=== PATIENT | female | born 1980 | race African-American/Black ===

== ENCOUNTER 2017-01-20 20:57 | Emergency (ER) | payer OTHER ==
[~2017-01-20] VITALS: Ht 157.5 cm; Wt 78.9 kg
[~2017-01-20 20:57] MED LIST: CETI-17 PO; DULO20CA PO; FLUT9.9S NS; GABA-586 PO; HYDR-2758 PO; IBUP-1060 PO; IRON18TA PO; MULT-18 PO; OMEP20CA9 PO; PROAIR HFA8.5 GM INH; flexeril
[2017-01-20 21:07] VITALS: BP 119/75
[2017-01-20 21:21] LABS: BILIRUBIN,URINE NEGATIVE (NEG); GLUCOSE,URINE NEGATIVE (NEG); NITRITE,URINE NEGATIVE (NEG); PROTEIN,URINE NEGATIVE (NEG-TRACE); UROBILINOGEN,URINE 0.2 mg/dL (0.2 mg/dL)
[2017-01-20 21:39] LABS: BACTERIA,URINE 0 /HPF (0-FEW); RBC,URINE OCC /HPF (0-2); SQUAMOUS EPITHELIAL CELL,UR MOD /LPF; WBC,URINE 0 /HPF (0-4)
[2017-01-20] MEDS ORDERED: PSEUDOEPHEDRINE 30 MG TABLET. PO PRN (21:45)
--- NOTE | 2017-01-20 21:47 | PHYS DOC ---
Past Medical History Past Medical History: Anemia, Arthritis, Bronchitis, GERD, Sciatica, Other Additional Past Medical Histor: ulcers; ovarian cysts; season allergies Past Surgical History: Appendectomy, Hysterectomy, Oophorectomy, Tonsillectomy , Tubal ligation Additional Past Surgical Histo: laparascopic abdominal surgeries, nose Alcohol Use: Occasionally Drug Use: Marijuana Adult General Chief Complaint Chief Complaint: URINARY RETENTION HPI HPI Patient is a 37 year old female presents to emergency department stating that she has having left frontal sinus pain and discomfort as well as left maxillary. Patient states that she's had some nasal congestion and coughing up green to yellow sputum. She states that her chest discomfort this occurring mainly when she is coughing. Patient is also stating that she's having urinary frequency and dysuria with urination. Patient states she's been having some white vaginal discharge. She states that she has not concern for sexual transmitted infection she is concerned however for bacterial vaginosis. Patient states that she has taken hydrocodone for her headache with no relief. Patient has not taken anything since this morning. Patient states that she's been having some lightheadedness and dizziness as well. Patient states that she thinks she has blacked out that she is unsure. Review of Systems Review of Systems Constitutional: Denies fever or chills [] Eyes: Denies change in visual acuity, redness, or eye pain [] HENT: Denies nasal congestion or sore throat [] Respiratory: Denies cough or shortness of breath [] Cardiovascular: No additional information not addressed in HPI [] GI: Denies abdominal pain, nausea, vomiting, bloody stools or diarrhea [] : Dysuria and vaginal discharge Musculoskeletal: Denies back pain or joint pain [] Integument: Denies rash or skin lesions [] Neurologic: headache, focal weakness or sensory changes [] Endocrine: Denies polyuria or polydipsia [] Current Medications Current Medications Current Medications Medications (Trade) Dose Ordered Sig/Mac Start Time Stop Time Status Last Admin Dose Admin Ibuprofen (Motrin) 800 mg 1X ONCE 01/20/17 22:00 01/20/17 22:01 DC 01/20/17 22:04 800 MG Pseudoephedrine HCl (Sudafed) 30 mg PRN Q6HRS PRN 01/20/17 21:45 01/20/17 22:04 30 MG Allergies Allergies Allergies Coded Allergies Type Severity Reaction Last Updated Verified azithromycin Allergy Intermediate hives 05/23/14 Yes Physical Exam Physical Exam Constitutional: Well developed, well nourished, no acute distress, non-toxic appearance. [] HENT: Normocephalic, atraumatic, bilateral external ears normal, oropharynx moist, no oral exudates, nose normal. Bilateral tympanic membranes appear to be normal. Patient with tenderness noted over the left frontal and maxillary sinus area. Eyes: PERRLA, EOMI, conjunctiva normal, no discharge. [] Neck: Normal range of motion, no tenderness, supple, no stridor. [] Cardiovascular:Heart rate regular rhythm, no murmur [] Lungs & Thorax: Bilateral breath sounds clear to auscultation [] Skin: Warm, dry, no erythema, no rash. [] Back: No tenderness, no CVA tenderness. [] Extremities: No tenderness, no cyanosis, no clubbing, ROM intact, no edema. [] Neurologic: Alert and oriented X 3, normal motor function, normal sensory function, no focal deficits noted. [] Psychologic: Affect normal, judgement normal, mood normal. [] Vaginal exam: completed with SHAWANDA Wheeler at bedside. Speculum exam with thick white discharge noted. Manual exam with CMT and left adnexal tenderness noted, no right adnexal tenderness noted. Current Patient Data Vital Signs Vital Signs Date Time Temp Pulse Resp B/P (MAP) Pulse Ox O2 Delivery O2 Flow Rate FiO2 01/20/17 21:07 98.0 90 16 100 Room Air 98.0 Lab Values Laboratory Tests Test 01/20/17 20:59 Urine Collection Type Unknown Urine Color Yellow Urine Clarity Clear Urine pH 7.0 Urine Specific [place] <=1.005 Urine Protein Negative mg/dL (NEG-TRACE) Urine Glucose (UA) Negative mg/dL (NEG) Urine Ketones (Stick) Negative mg/dL (NEG) Urine Blood Negative (NEG) Urine Nitrite Negative (NEG) Urine Bilirubin Negative (NEG) Urine Urobilinogen Dipstick 0.2 mg/dL (0.2 mg/dL) Urine Leukocyte Esterase Negative (NEG) Urine RBC Occ /HPF (0-2) Urine WBC 0 /HPF (0-4) Urine Squamous Epithelial Cells Mod /LPF Urine Bacteria 0 /HPF (0-FEW) Urine Mucus Slight /LPF Microbiology 01/20/17 Wet Prep - Final, Complete EKG EKG [] Radiology/Procedures Radiology/Procedures [] Course & Med Decision Making Course & Med Decision Making Pertinent Labs and Imaging studies reviewed. (See chart for details) Patient was provided with Sudafed and ibuprofen here in the emergency department. Patient denies possibility of sexual transmitted infections. Patient will be provided with Flagyl for bacterial vaginosis. Patient will be provided with Levaquin for sinusitis infection as well as covering for UTI. Patient will be discharged home with recommendations to drink plenty of fluids. Recommended Sudafed and ibuprofen for pain and discomfort. Also recommended Mucinex DM [id number]. Patient will be discharged home in stable condition signs and symptoms to return back to emergency department as been provided. All questions and concerns been answered at patient's bedside. Patient was recommended to follow-up the primary care physician next 5-7 days. Patient agrees with discharge instructions treatment regimens and follow-up recommendations. [] Dragon Disclaimer Dragon Disclaimer This electronic medical record was generated, in whole or in part, using a voice recognition dictation system. Departure Departure Impression: Primary Impression: Dysuria Additional Impressions: Bacterial vaginosis Sinusitis Disposition: HOME, SELF-CARE Condition: STABLE Referrals: DOMINGO GROVE MD (PCP) Patient Instructions: Bacterial Vaginosis, [id number], Dysuria-Brief, Sinusitis, [id number] Additional Instructions: Activity as tolerated. Medications as prescribed. Tylenol or ibuprofen for fever chills generalized body aches and discomfort. Sudafed and Mucinex DM instructed by sheet metal smith [id number]. Drink plenty of fluids. Follow-up primary care physician next 7-10 days. Return back to emergency prior signs symptoms of become worse. Scripts Metronidazole (FLAGYL) 500 Mg Tablet 1 TAB PO BID, #14 TAB Prov: JAVI VIZCAINO PROPERTY CONSULTANT 01/20/17 Levofloxacin (LEVAQUIN) 750 Mg Tablet 1 TAB PO DAILY, #5 TAB Prov: JAVI VIZCAINO APRN 01/20/17 Problem Qualifiers Additional Impressions: Sinusitis Sinusitis location: unspecified location Chronicity: unspecified Qualified Codes: J32.9 - Chronic sinusitis, unspecified JAVI VIZCAINO PROPERTY CONSULTANT Jan 20, 2017 21:47
[2017-01-20] MEDS ORDERED: IBUPROFEN 800 MG TABLET. PO ONE (22:00)
[2017-01-20] MEDS ORDERED: LEVO750T31 PO (22:18)
[2017-01-20] MEDS ORDERED: METR500T PO (22:18)
== END 2017-01-20 22:34 | disposition home or self-care (01) ==
LOC: ER 20:57
DX: N76.0 Acute vaginitis (principal); J32.0 Chronic maxillary sinusitis; J32.1 Chronic frontal sinusitis; M19.90 Unspecified osteoarthritis, unspecified site; K21.9 Gastro-esophageal reflux disease without esophagitis; Z90.49 Acquired absence of other specified parts of digestive tract; Z90.710 Acquired absence of both cervix and uterus; Z98.51 Tubal ligation status; Z90.721 Acquired absence of ovaries, unilateral; Z88.1 Allergy status to other antibiotic agents
CPT/HCPCS: 81001; 87491; 87591; 99284; Q0111

== ENCOUNTER 2017-01-26 17:54 | Emergency (ER) | payer OTHER ==
[~2017-01-26] VITALS: Ht 157.5 cm; Wt 78.9 kg
[~2017-01-26 17:54] MED LIST changes: +LEVO750T31 PO; +METR500T PO
[2017-01-26 18:00] VITALS: BP 108/77
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
[2017-01-26] MEDS ORDERED: traMADol 50 MG TABLET PO ONE (18:30)
[2017-01-26] MEDS ORDERED: TRAM50TA PO (18:45)
--- NOTE | 2017-01-27 08:40 | RAD ---
Right shoulder, 3 views, 01/26/2017: History: Injury, pain No fracture or dislocation is identified. The periarticular soft tissues are unremarkable. IMPRESSION: No acute right shoulder abnormality is detected.
== END 2017-01-26 18:55 | disposition home or self-care (01) ==
LOC: ER 17:54
DX: S49.91XA Unspecified injury of right shoulder and upper arm, initial encounter (principal); K21.9 Gastro-esophageal reflux disease without esophagitis; M19.90 Unspecified osteoarthritis, unspecified site; Z88.1 Allergy status to other antibiotic agents; X58.XXXA Exposure to other specified factors, initial encounter; Y93.89 Activity, other specified; Y92.89 Other specified places as the place of occurrence of the external cause; Y99.8 Other external cause status
CPT/HCPCS: 73030; 81025; 99284

== ENCOUNTER 2017-03-02 22:02 | Emergency (ER) | payer OTHER ==
[~2017-03-02] VITALS: Ht 162.6 cm; Wt 73.5 kg
[~2017-03-02 22:02] MED LIST changes: +TRAM50TA PO
[2017-03-02 22:10] VITALS: BP 127/81
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
[2017-03-02] MEDS ORDERED: TRAM50TA PO (22:59)
== END 2017-03-02 22:59 | disposition home or self-care (01) ==
LOC: ER 22:02
DX: S02.2XXA Fracture of nasal bones, initial encounter for closed fracture (principal); M54.2 Cervicalgia; M19.90 Unspecified osteoarthritis, unspecified site; K21.9 Gastro-esophageal reflux disease without esophagitis; F12.10 Cannabis abuse, uncomplicated; Z90.710 Acquired absence of both cervix and uterus; Z90.49 Acquired absence of other specified parts of digestive tract; Z88.1 Allergy status to other antibiotic agents; Y04.0XXA Assault by unarmed brawl or fight, initial encounter; Y93.89 Activity, other specified; Y92.89 Other specified places as the place of occurrence of the external cause; Y99.8 Other external cause status
CPT/HCPCS: 70450; 70486; 72125; 99284-25

== ENCOUNTER 2017-03-26 16:22 | Emergency (ER) | payer OTHER ==
[~2017-03-26] VITALS: Ht 162.6 cm; Wt 73.5 kg
[2017-03-26 17:05] VITALS: BP 124/70
[2017-03-26 18:54] LABS: BILIRUBIN,URINE SMALL (NEG); GLUCOSE,URINE NEGATIVE (NEG); NITRITE,URINE NEGATIVE (NEG); PROTEIN,URINE NEGATIVE (NEG-TRACE)
[2017-03-26 18:55] LABS: BACTERIA,URINE 0 /HPF (0-FEW); RBC,URINE 0 /HPF (0-2); SQUAMOUS EPITHELIAL CELL,UR MOD /LPF; WBC,URINE 0 /HPF (0-4)
[2017-03-26] MEDS ORDERED: DOXY100C2 PO (19:13)
[2017-03-26] MEDS ORDERED: SULF1TAB24 PO (19:13)
--- NOTE | 2017-03-26 19:13 | PHYS DOC ---
Past Medical History Past Medical History: Anemia, Arthritis, Bronchitis, GERD, Sciatica, Other Additional Past Medical Histor: ulcers; ovarian cysts; season allergies Past Surgical History: Appendectomy, Hysterectomy, Oophorectomy, Tonsillectomy , Tubal ligation Additional Past Surgical Histo: laparascopic abdominal surgeries, nose Alcohol Use: Occasionally Drug Use: None Adult General Chief Complaint Chief Complaint: COUGH HPI HPI Patient is a 37 year old female presents to the emergency department stating that she's been having a cough and congestion for the last few days. She states that she has increased discomfort in her chest which she takes a deep breath. Denies any fever, chills or any nausea vomiting. Patient then states that she wants to be checked for STDs as her has been unfaithful. Review of Systems Review of Systems Constitutional: Denies fever or chills [] Eyes: Denies change in visual acuity, redness, or eye pain [] HENT: Denies nasal congestion or sore throat [] Respiratory: Cough and congestion with increased chest discomfort with deep breathing. Denies any shortness of air Cardiovascular: No additional information not addressed in HPI [] GI: Denies abdominal pain, nausea, vomiting, bloody stools or diarrhea [] : Denies dysuria or hematuria [] Musculoskeletal: Denies back pain or joint pain [] Integument: Denies rash or skin lesions [] Neurologic: Denies headache, focal weakness or sensory changes [] Endocrine: Denies polyuria or polydipsia [] All other systems were reviewed and found to be within normal limits, except as documented in this note. Allergies Allergies Allergies Coded Allergies Type Severity Reaction Last Updated Verified azithromycin Allergy Intermediate hives 05/23/14 Yes Physical Exam Physical Exam Constitutional: Well developed, well nourished, no acute distress, non-toxic appearance. [] HENT: Normocephalic, atraumatic, bilateral external ears normal, oropharynx moist, no oral exudates, nose normal. Bilateral tympanic membranes normal. Throat with postnasal drip. No erythematous noted no exudate. Eyes: PERRLA, EOMI, conjunctiva normal, no discharge. [] Neck: Normal range of motion, no tenderness, supple, no stridor. [] Cardiovascular:Heart rate regular rhythm, no murmur [] Lungs & Thorax: Bilateral breath sounds clear to auscultation [] Abdomen: Bowel sounds normal, soft, no tenderness, no masses, no pulsatile masses. [] Skin: Warm, dry, no erythema, no rash. [] Extremities: No tenderness, no cyanosis, no clubbing, ROM intact, no edema. [] Neurologic: Alert and oriented X 3, normal motor function, normal sensory function, no focal deficits noted. [] Psychologic: Affect normal, judgement normal, mood normal. [] Vaginal exam completed with RN at bedside. Cultures were obtained. Patient with left adnexal tenderness noted. Current Patient Data Vital Signs Vital Signs Date Time Temp Pulse Resp B/P (MAP) Pulse Ox O2 Delivery O2 Flow Rate FiO2 03/26/17 17:05 98.1 88 18 96 Room Air 98.1 Lab Values Laboratory Tests Test 03/26/17 18:10 Urine Collection Type Unknown Urine Color Anastasiya Urine Clarity Clear Urine pH 6.0 Urine Specific [place] >=1.030 Urine Protein Negative mg/dL (NEG-TRACE) Urine Glucose (UA) Negative mg/dL (NEG) Urine Ketones (Stick) Trace mg/dL (NEG) Urine Blood Negative (NEG) Urine Nitrite Negative (NEG) Urine Bilirubin Small (NEG) Urine Urobilinogen Dipstick 1.0 mg/dL (0.2 mg/dL) Urine Leukocyte Esterase Negative (NEG) Urine RBC 0 /HPF (0-2) Urine WBC 0 /HPF (0-4) Urine Squamous Epithelial Cells Mod /LPF Urine Bacteria 0 /HPF (0-FEW) Urine Mucus Marked /LPF Microbiology 03/26/17 Wet Prep - Final, Complete EKG EKG [] Radiology/Procedures Radiology/Procedures [] Course & Med Decision Making Course & Med Decision Making Pertinent Labs and Imaging studies reviewed. (See chart for details) After moving patient to an exam room were vaginal exam could be completed patient states that she's been having dysuria. Patient's urine was obtained and sent. Patient's urine was positive for urinary tract infection. Wet prep was positive for Trichomonas, bacterial vaginosis. Patient will be placed on doxycycline as she is allergic to Zithromax. She was provided with Rocephin injection and Flagyl here in the emergency department. She'll be placed on Bactrim DS one tablet twice a day for the next 3 days. Patient was encouraged to drink plenty of fluids such as water and cranberry juice. Avoid rages cocktail, carbonate beverages, citrus fruits, alcohol as these are considered irritants to the bladder. Patient was also instructed to avoid sexual intercourse for the next 2 weeks. She was instructed she will be notified if her STDs are positive within the next 2-3 days. Patient agrees with discharge instructions treatment regimens and follow-up recommendations. Signs and symptoms return back to emergency department has been provided. [] Dragon Disclaimer Dragon Disclaimer This electronic medical record was generated, in whole or in part, using a voice recognition dictation system. Departure Departure Impression: Primary Impression: Bacterial vaginosis Additional Impressions: UTI (urinary tract infection) Trichomonas infection Upper respiratory infection Disposition: HOME, SELF-CARE Condition: STABLE Referrals: DOMINGO GROVE MD (PCP) Patient Instructions: Bacterial Vaginosis, Suoy-ox-Csse, Trichomoniasis-Brief, Upper Respiratory Infection, Adult, [id number], Urinary Tract Infection, Easy- to-Read Additional Instructions: Activity as tolerated. Medications as prescribed. Avoid sexual intercourse for the next 2 weeks. You will be notified in 2-3 days if your STDs are positive. Drink plenty of fluids such as water and cranberry juice. Avoid cranberry juice cocktail, carbonate beverages, citrus fruits, and alcohol as his are considered irritants to the bladder. Follow-up with primary care physician the next 7-10 days. Return back to the emergency department for signs and symptoms of become worse Scripts Sulfamethoxazole/Trimethoprim (BACTRIM DS TABLET) 1 Each Tablet 1 TAB PO BID, #6 TAB Prov: JAVI VIZCAINO APRN 03/26/17 Doxycycline Hyclate (DOXYCYCLINE HYCLATE) 100 Mg Capsule 1 CAP PO BID, #28 CAP Prov: JAVI VIZCAINO APRN 03/26/17 Problem Qualifiers Additional Impressions: UTI (urinary tract infection) Urinary tract infection type: site unspecified Hematuria presence: without hematuria Qualified Codes: N39.0 - Urinary tract infection, site not specified JAVI VIZCAINO APRN Mar 26, 2017 19:13
[2017-03-26] MEDS ORDERED: cefTRIAXone IM 250 MG VIAL IM ONE (19:15)
[2017-03-26] MEDS ORDERED: metroNIDAZOLE 500 MG TABLET PO ONE (19:15)
[2017-03-26] MEDS ORDERED: LIDOCAINE 1% PF 2 ML VIAL. ONE (19:16)
[2017-03-26] MEDS ORDERED: LIDOCAINE 1% PF 2 ML VIAL. INJ ONE (19:30)
[2017-03-26] MEDS ORDERED: FLUC150T PO (19:32)
--- NOTE | 2017-04-01 09:55 | VNOTE ---
CALL BACK NOTE CALL BACK Microbiology 03/26/17 Wet Prep - Final, Complete Patient notified of vaginal culture results from March 26 visit. Positive for chlamydia. She was discharged on doxycycline at that time. Patient does report she filled the prescription is taking as directed. No other treatment indicated at this time. TIANNA GOLDSTEIN APRN Apr 01, 2017 09:55
== END 2017-03-26 19:27 | disposition home or self-care (01) ==
LOC: ER 16:22
DX: N76.0 Acute vaginitis (principal); B96.89 Other specified bacterial agents as the cause of diseases classified elsewhere; N39.0 Urinary tract infection, site not specified; A59.01 Trichomonal vulvovaginitis; J06.9 Acute upper respiratory infection, unspecified; M19.90 Unspecified osteoarthritis, unspecified site; K21.9 Gastro-esophageal reflux disease without esophagitis; Z90.49 Acquired absence of other specified parts of digestive tract; Z88.1 Allergy status to other antibiotic agents; Z90.710 Acquired absence of both cervix and uterus; Z90.721 Acquired absence of ovaries, unilateral; Z98.51 Tubal ligation status
CPT/HCPCS: 81001; 87491; 87591; 96372; 99284; J0696; Q0111

== ENCOUNTER 2017-06-08 06:10 | Emergency (ER) | payer OTHER ==
[2017-06-08] MEDS: ONDANSETRON ODT 4 MG TAB.RAPDIS. PO (07:31)
[2017-06-08] MEDS: KETOROLAC 60 MG/2 ML INJ. IM (07:32)
[2017-06-08] MEDS: ACETAMINOPHEN 500 MG TABLET PO (07:32)
[2017-06-08 23:10] LABS: HIV ANTIBODY Non Reactive (Non Reactive)
== END 2017-06-08 07:55 | disposition home or self-care (01) ==
LOC: ER 06:10
DX: S39.012A Strain of muscle, fascia and tendon of lower back, initial encounter (principal); S29.012A Strain of muscle and tendon of back wall of thorax, initial encounter; S16.1XXA Strain of muscle, fascia and tendon at neck level, initial encounter; G44.209 Tension-type headache, unspecified, not intractable; F17.210 Nicotine dependence, cigarettes, uncomplicated; Z90.710 Acquired absence of both cervix and uterus; Z90.49 Acquired absence of other specified parts of digestive tract; Z98.51 Tubal ligation status; Z88.1 Allergy status to other antibiotic agents; Z91.018 Allergy to other foods; V43.52XA Car driver injured in collision with other type car in traffic accident, initial encounter; Y93.89 Activity, other specified; Y99.8 Other external cause status; Y92.488 Other paved roadways as the place of occurrence of the external cause
CPT/HCPCS: 36415; 86703; 96372; 99283-25; J1885; Q0162

== ENCOUNTER 2017-06-23 06:36 | Emergency (ER) | payer OTHER ==
[2017-06-23] MEDS: IBUPROFEN 600 MG TABLET. PO (08:05)
== END 2017-06-23 08:31 | disposition home or self-care (01) ==
LOC: ER 06:36
DX: M54.9 Dorsalgia, unspecified (principal); R51 Headache; Z90.49 Acquired absence of other specified parts of digestive tract; Z90.710 Acquired absence of both cervix and uterus; Z88.1 Allergy status to other antibiotic agents; Z91.018 Allergy to other foods; Z98.51 Tubal ligation status; V43.52XA Car driver injured in collision with other type car in traffic accident, initial encounter; Y93.I9 Activity, other involving external motion; Y92.410 Unspecified street and highway as the place of occurrence of the external cause; Y99.8 Other external cause status
CPT/HCPCS: 72040; 72072; 72100; 99284

== ENCOUNTER 2017-10-23 13:38 | Emergency (ER) | payer OTHER ==
[2017-10-23 14:48] LABS: BILIRUBIN,URINE NEGATIVE (NEG); CLARITY,URINE CLEAR; COLOR,URINE YELLOW; GLUCOSE,URINE NEGATIVE (NEG); NITRITE,URINE NEGATIVE (NEG); PROTEIN,URINE NEGATIVE (NEG-TRACE)
[2017-10-23 14:56] LABS: BACTERIA,URINE MANY /HPF (0-FEW); SQUAMOUS EPITHELIAL CELL,UR MOD /LPF
[2017-10-23 15:00] LABS: NEG OBC UR NEG; POS OBC UR POS; U PREG PATIENT NEGATIVE (NEG)
[2017-10-23] MEDS: cefTRIAXone IM 250 MG VIAL IM (16:30)
[2017-10-25 15:29] LABS: CHLAMYDIA PROBE Negative (Negative); GC PROBE Negative (Negative)
== END 2017-10-23 16:39 | disposition home or self-care (01) ==
LOC: ER 16:39
DX: N39.0 Urinary tract infection, site not specified (principal); N76.0 Acute vaginitis; B96.89 Other specified bacterial agents as the cause of diseases classified elsewhere; Z20.2 Contact with and (suspected) exposure to infections with a predominantly sexual mode of transmission; Z90.49 Acquired absence of other specified parts of digestive tract; Z90.710 Acquired absence of both cervix and uterus; Z98.51 Tubal ligation status; Z88.1 Allergy status to other antibiotic agents; Z91.018 Allergy to other foods
CPT/HCPCS: 76856; 81001; 81025; 87086; 87491; 87591; 96372; 99285; J0696; Q0111

== ENCOUNTER 2017-10-26 08:12 | Emergency (ER) | payer OTHER ==
[2017-10-26 08:36] LABS: BILIRUBIN,URINE NEGATIVE (NEG); CLARITY,URINE CLEAR; COLOR,URINE YELLOW; GLUCOSE,URINE NEGATIVE (NEG); NITRITE,URINE NEGATIVE (NEG); PH,URINE 6.5; PROTEIN,URINE NEGATIVE (NEG-TRACE)
[2017-10-26 08:44] LABS: BACTERIA,URINE FEW /HPF (0-FEW); RBC,URINE OCC /HPF (0-2); SQUAMOUS EPITHELIAL CELL,UR MANY /LPF
[2017-10-26 08:46] LABS: ADD MAN DIFF? NO
[2017-10-26] MEDS: IV NORMAL SALINE 1000ML BAG 1,000 ML IV (08:46)
[2017-10-26] MEDS: PANTOPRAZOLE IV PUSH 40 MG VIAL. IVP (08:46)
[2017-10-26] MEDS: ONDANSETRON PF 4 MG/2 ML VIAL. IV (08:46)
[2017-10-26 08:56] LABS: BASO # 0.1 x10^3/uL (0.0-0.2); BASO % 2 % (0-3); EOS # 0.1 x10^3/uL (0.0-0.7); EOS % 1 % (0-3); HEMATOCRIT 35.6 % (36.0-47.0); HEMOGLOBIN 12.3 g/dL (12.0-15.5); LYMPH # 2.6 x10^3/uL (1.0-4.8); LYMPH % 49 % (24-48); MEAN CORPUSCULAR HEMOGLOBIN 32 pg (25-35); MEAN CORPUSCULAR HGB CONC 35 g/dL (31-37); MEAN CORPUSCULAR VOLUME 92 fL (79-100); MONO # 0.5 x10^3/uL (0.0-1.1); MONO % 9 % (0-9); NEUT # 2.1 x10^3uL (1.8-7.7); NEUT % 40 % (31-73); PLATELET COUNT 283 x10^3/uL (140-400); RED BLOOD COUNT 3.86 x10^6/uL (3.50-5.40); RED CELL DISTRIBUTION WIDTH 12.9 % (11.5-14.5); WHITE BLOOD COUNT 5.3 x10^3/uL (4.0-11.0)
[2017-10-26 08:59] LABS: ANION GAP 8 (6-14); BLOOD UREA NITROGEN 9 mg/dL (7-20); BUN/CREATININE RATIO 9 (6-20); CALCIUM 8.9 mg/dL (8.5-10.1); CARBON DIOXIDE 26 mmol/L (21-32); CHLORIDE 105 mmol/L (98-107); GFR 75.5; GLUCOSE 90 mg/dL (70-99); POTASSIUM 3.8 mmol/L (3.5-5.1); SODIUM 139 mmol/L (136-145)
[2017-10-26 09:01] LABS: ETHANOL < 10 mg/dL (0-10)
[2017-10-26 09:04] LABS: ALBUMIN 3.6 g/dL (3.4-5.0); ALBUMIN/GLOBULIN RATIO 0.9 (1.0-1.7); ALK PHOS 64 U/L (46-116); ALT (SGPT) 19 U/L (14-59); AST (SGOT) 13 U/L (15-37); LIPASE 194 U/L (73-393); TOTAL BILIRUBIN 0.8 mg/dL (0.2-1.0); TOTAL PROTEIN 7.4 g/dL (6.4-8.2)
[2017-10-26 10:35] LABS: AMPHETAMINE/METHAMPHETAMINE NEG (NEG); BARBITURATES NEG (NEG); BENZODIAZEPINES NEG (NEG); CANNABINOIDS POS (NEG); COCAINE NEG (NEG); ETHANOL, URINE NEG (NEG); METHADONE NEG (NEG); OPIATES NEG (NEG); PHENCYCLIDINE NEG (NEG)
== END 2017-10-26 11:04 | disposition home or self-care (01) ==
LOC: ER 08:12
DX: N39.0 Urinary tract infection, site not specified (principal); Z90.710 Acquired absence of both cervix and uterus; Z90.49 Acquired absence of other specified parts of digestive tract; Z98.51 Tubal ligation status; Z88.1 Allergy status to other antibiotic agents; Z91.018 Allergy to other foods
CPT/HCPCS: 36415; 76705; 80053; 80307; 81001; 83690; 85025; 87086; 96361; 96374; 96375; 99285-25; C9113; G0480; J2405; J7030

== ENCOUNTER 2018-01-04 14:39 | Emergency (ER) | payer OTHER ==
[~2018-01-04] VITALS: Ht 157.5 cm; Wt 65.3 kg
[~2018-01-04 14:39] MED LIST changes: +ACET325T9 PO; +DIAZ5TAB PO; +DOXY100C14 PO; +DOXY100C2 PO; +FLUC150T PO; +NAPR-683 PO; +ONDA4TAB10 PO; +ONDA4TAB10 SL; +PROM12.56 PO; +SULF1TAB24 PO
[2018-01-04] MEDS ORDERED: IV NORMAL SALINE 1000ML BAG 1,000 ML IV ONE (16:00)
[2018-01-04] MEDS ORDERED: DEXAMETHASONE SOD PHOS 20 MG/5 ML VIAL. IV ONE (16:00)
[2018-01-04] MEDS ORDERED: KETOROLAC 15 MG/ML VIAL. IV ONE (16:00)
[2018-01-04] MEDS ORDERED: diphenhydrAMINE 50 MG/ML VIAL IVP ONE (16:00)
[2018-01-04] MEDS ORDERED: METOCLOPRAMIDE HCL 10 MG/2 ML VIAL. IV ONE (16:00)
[2018-01-04 16:30] VITALS: BP 106/59
[2018-01-04] MEDS ORDERED: ONDA4TAB10 PO (16:56)
[2018-01-04] MEDS ORDERED: BUTA1TAB23 PO (16:56)
--- NOTE | 2018-01-04 16:56 | PHYS DOC ---
Past Medical History Past Medical History: Bronchitis, Ovarian Cyst Additional Past Medical Histor: ulcers; ovarian cysts; season allergies Past Surgical History: Appendectomy, Hysterectomy, Tonsillectomy, Tubal ligation Additional Past Surgical Histo: laparascopic abdominal surgeries, nose Alcohol Use: Occasionally Drug Use: Marijuana Adult General Chief Complaint Chief Complaint: HEADACHE HPI HPI Patient is a 38 year old [f__sex] who presents with [] Review of Systems Review of Systems Constitutional: Denies fever or chills [] Eyes: Denies change in visual acuity, redness, or eye pain [] HENT: Denies nasal congestion or sore throat [] Respiratory: Denies cough or shortness of breath [] Cardiovascular: No additional information not addressed in HPI [] GI: Denies abdominal pain, nausea, vomiting, bloody stools or diarrhea [] : Denies dysuria or hematuria [] Musculoskeletal: Denies back pain or joint pain [] Integument: Denies rash or skin lesions [] Neurologic: Denies headache, focal weakness or sensory changes [] Endocrine: Denies polyuria or polydipsia [] All other systems were reviewed and found to be within normal limits, except as documented in this note. Current Medications Current Medications Current Medications Medications (Trade) Dose Ordered Sig/Mac Start Time Stop Time Status Last Admin Dose Admin Dexamethasone Sodium Phosphate (Decadron) 10 mg 1X ONCE 01/04/18 16:00 01/04/18 16:01 DC 01/04/18 16:21 10 MG Diphenhydramine HCl (Benadryl) 50 mg 1X ONCE 01/04/18 16:00 01/04/18 16:01 DC 01/04/18 16:19 50 MG Ketorolac Tromethamine (Toradol 15mg Vial) 15 mg 1X ONCE 01/04/18 16:00 01/04/18 16:01 DC 01/04/18 16:18 15 MG Metoclopramide HCl (Reglan Vial) 10 mg 1X ONCE 01/04/18 16:00 01/04/18 16:01 DC 01/04/18 16:16 10 MG Sodium Chloride 1,000 ml @ 1,000 mls/hr 1X ONCE 01/04/18 16:00 01/04/18 16:59 01/04/18 16:15 1,000 MLS/HR Allergies Allergies Allergies Coded Allergies Type Severity Reaction Last Updated Verified azithromycin Allergy Intermediate hives 05/23/14 Yes onion Allergy Intermediate 04/08/17 Yes Physical Exam Physical Exam Constitutional: Well developed, well nourished, no acute distress, non-toxic appearance. [] HENT: Normocephalic, atraumatic, bilateral external ears normal, oropharynx moist, no oral exudates, nose normal. [] Eyes: PERRLA, EOMI, conjunctiva normal, no discharge. [] Neck: Normal range of motion, no tenderness, supple, no stridor. [] Cardiovascular:Heart rate regular rhythm, no murmur [] Lungs & Thorax: Bilateral breath sounds clear to auscultation [] Abdomen: Bowel sounds normal, soft, no tenderness, no masses, no pulsatile masses. [] Skin: Warm, dry, no erythema, no rash. [] Back: No tenderness, no CVA tenderness. [] Extremities: No tenderness, no cyanosis, no clubbing, ROM intact, no edema. [] Neurologic: Alert and oriented X 3, normal motor function, normal sensory function, no focal deficits noted. [] Psychologic: Affect normal, judgement normal, mood normal. [] Current Patient Data Vital Signs Vital Signs Date Time Temp Pulse Resp B/P (MAP) Pulse Ox O2 Delivery O2 Flow Rate FiO2 01/04/18 14:58 98.5 81 14 103/57 (72) 97 Room Air 98.5 EKG EKG [] Radiology/Procedures Radiology/Procedures [] Course & Med Decision Making Course & Med Decision Making Pertinent Labs and Imaging studies reviewed. (See chart for details) [] Dragon Disclaimer Dragon Disclaimer This electronic medical record was generated, in whole or in part, using a voice recognition dictation system. Departure Departure Impression: Primary Impression: Migraine headache Disposition: HOME, SELF-CARE Condition: IMPROVED Referrals: DOMINGO GROVE MD (PCP) JOHANA PRICE MD Patient Instructions: Recurrent Migraine Headache Scripts Butalb/Acetaminophen/Caffeine ([id number]-[id number] 50-325-40) 1 Each Tablet 1 EACH PO Q6HRS PRN for HEADACHE, #14 TAB Prov: SATHYA SANTOS DO 01/04/18 Ondansetron (ZOFRAN ODT) 4 Mg Tab.rapdis 4 MG PO TID PRN PRN for NAUSEA/VOMITING, #14 TAB Prov: SATHYA SANTOS DO 01/04/18 Problem Qualifiers Primary Impression: Migraine headache Migraine type: unspecified Status migrainosus presence: with status migrainosus Intractability: intractable Qualified Codes: G43.911 - Migraine , unspecified, intractable, with status migrainosus SATHYA SANTOS DO Jan 04, 2018 16:56
== END 2018-01-04 17:10 | disposition home or self-care (01) ==
LOC: ER 14:39
DX: G43.911 Migraine, unspecified, intractable, with status migrainosus (principal); Z88.1 Allergy status to other antibiotic agents; Z91.018 Allergy to other foods; Z90.710 Acquired absence of both cervix and uterus; Z90.89 Acquired absence of other organs; Z98.51 Tubal ligation status
CPT/HCPCS: 96374; 96375; 99284; J1100; J1200; J1885; J2765; J7030

== ENCOUNTER → 2018-02-14 | Outpatient (CLI) | payer OTHER ==
[~2018-02-14] MED LIST changes: +BUTA1TAB23 PO; +GADOBUTROL 7.5 MMOL/7.5 ML VIAL IV ONE
--- NOTE | 2018-02-14 13:57 | RAD ---
MRI Brain with and without contrast History: Worsening occipital headaches Technique: Multiplanar, multi sequential pre and postcontrast MR imaging was performed of the brain. Comparison: None Findings: There is no evidence of recent infarct or cytotoxic edema. The ventricles, sulci, and cisterns are within normal limits in size and configuration. There is no significant midline shift, intraaxial mass effect, or focal abnormal extra-axial fluid collection. There is no significant signal abnormality of the brain parenchyma. There is no nodular parenchymal or leptomeningeal enhancement. There is preservation of the major intracranial flow-voids at the skull base. The cerebellar tonsils are normal in location. There is no significant abnormality of the pineal gland or pituitary gland. Paranasal sinuses are overall aerated. The mastoid air cells are aerated. There is preserved marrow signal of the clivus. Impression: 1. There is no significant intracranial abnormality. Electronically signed by: Barrington Ortez MD (02/14/2018 1:53 PM) [id number]
== END | disposition home or self-care (01) ==
LOC: MRI 09:22
PROVIDERS: ATTEND Psychiatry & Neurology Neurology
DX: R51 Headache (principal)
CPT/HCPCS: 70553; A9585

== ENCOUNTER 2018-02-26 11:41 | Emergency (ER) | payer OTHER ==
[~2018-02-26] VITALS: Ht 157.5 cm; Wt 65.8 kg
[~2018-02-26 11:41] MED LIST changes: -GABA-586 PO; +GABA300C18 PO; -GADOBUTROL 7.5 MMOL/7.5 ML VIAL IV ONE; -HYDR-2758 PO; +HYDR-2761 PO
[2018-02-26 12:59] VITALS: BP 122/83
[2018-02-26 13:01] LABS: BILIRUBIN,URINE NEGATIVE (NEG); CLARITY,URINE CLEAR; COLOR,URINE YELLOW; NITRITE,URINE NEGATIVE (NEG); PH,URINE 6.5; PROTEIN,URINE NEGATIVE (NEG-TRACE)
[2018-02-26] MEDS: KETOROLAC 30 MG/ML VIAL. IV ONE (13:02)
[2018-02-26] MEDS: METOCLOPRAMIDE HCL 10 MG/2 ML VIAL. IV ONE (13:02)
[2018-02-26 13:22] LABS: SQUAMOUS EPITHELIAL CELL,UR MANY /LPF
[2018-02-26 13:23] LABS: BACTERIA,URINE FEW /HPF (0-FEW)
== END 2018-02-26 15:10 | disposition left against medical advice (07) ==
LOC: ER 11:41
DX: G43.909 Migraine, unspecified, not intractable, without status migrainosus (principal)
CPT/HCPCS: 81001; 96374; 96375; 99283; J1885; J2765

== ENCOUNTER 2019-11-21 11:31 | Emergency (ER) | payer OTHER ==
[~2019-11-21] VITALS: Ht 157.5 cm; Wt 70.5 kg
[~2019-11-21 11:31] MED LIST changes: +ALBU2.5V8 INH; +OMEP20CA16 PO; -OMEP20CA9 PO; -PROAIR HFA8.5 GM INH; -PROM12.56 PO; +PROM12.58 PO
[2019-11-21 11:35] VITALS: BP 130/81
[2019-11-21] MEDS ORDERED: IV NORMAL SALINE 1000ML BAG 1,000 ML IV SCH (11:42)
[2019-11-21] MEDS ORDERED: fentaNYL PF VIAL 100 MCG/2 ML VIAL IVP ONE (11:45)
--- NOTE | 2019-11-21 11:48 | PHYS DOC ---
Past Medical History Past Medical History: Bronchitis, Ovarian Cyst Additional Past Medical Histor: ulcers; ovarian cysts; season allergies Past Surgical History: Appendectomy, Hysterectomy, Tonsillectomy, Tubal ligation Additional Past Surgical Histo: laparascopic abdominal surgeries, nose Smoking Status: Current Every Day Smoker Alcohol Use: Occasionally Drug Use: Marijuana General Adult EDM: Chief Complaint: FLANK PAIN HPI: HPI: Patient is a 39 year old female who presents with sharp shooting right flank pain that wraps around to the right mid abdomen. Patient states this is been going off and on for the last month but is become more constant in the last 3 days. She states her urine also has a foul smell. She denies any pain or blood in her urine. Patient denies nausea, vomiting, diarrhea, fever, chest pain, shortness of air, dizziness, headache, focal weakness, abnormal vaginal discha rge. Patient rates her pain a 10 out of 10. She states she is been trying to use Tylenol and ibuprofen at home to help with the pain. He states nothing makes the pain better but the pain is worse when she takes a deep breath or is up and moving. She denies any injury. Patient has a history of bronchitis, smoker, ovarian cyst, ulcer, appendectomy, hysterectomy, tonsillectomy. Review of Systems: Review of Systems: Constitutional: Denies fever or chills. [] Eyes: Denies change in visual acuity. [] HENT: Denies nasal congestion or sore throat. [] Respiratory: Denies cough or shortness of breath. [] Cardiovascular: Denies chest pain or edema. [] GI: Right upper/mid abdominal pain, denies nausea, vomiting, bloody stools or diarrhea. [] : Denies dysuria. Foul-smelling urine. [] Musculoskeletal: Right flank back pain or joint pain. [] Integument: Denies rash. [] Neurologic: Denies headache, focal weakness or sensory changes. [] Endocrine: Denies polyuria or polydipsia. [] Lymphatic: Denies swollen glands. [] Psychiatric: Denies depression or anxiety. [] Heart Score: Risk Factors: Risk Factors: DM, Current or recent (<one month) smoker, HTN, HLP, family history of CAD, obesity. Risk Scores: Score 0 - 3: 2.5% MACE over next 6 weeks - Discharge Home Score 4 - 6: 20.3% MACE over next 6 weeks - Admit for Clinical Observation Score 7 - 10: 72.7% MACE over next 6 weeks - Early Invasive Strategies Allergies: Allergies: Allergies Coded Allergies Type Severity Reaction Last Updated Verified azithromycin Allergy Intermediate hives 05/23/14 Yes onion Allergy Intermediate 04/08/17 Yes Physical Exam: PE: Constitutional: Well developed, well nourished, no acute distress, non-toxic appearance. [] HENT: Normocephalic, atraumatic, bilateral external ears normal, oropharynx moist, no oral exudates, nose normal. [] Eyes: PERRLA, EOMI, conjunctiva normal, no discharge. [] Neck: Normal range of motion, no tenderness, supple, no stridor. [] Cardiovascular:Heart rate regular rhythm, no murmur [] Lungs & Thorax: Bilateral breath sounds clear to auscultation [] Abdomen: Bowel sounds normal, soft, right upper/ mid tenderness, no masses, no pulsatile masses. [] Skin: Warm, dry, no erythema, no rash. [] Back: No tenderness, right CVA tenderness. [] Extremities: No tenderness, no cyanosis, no clubbing, ROM intact, no edema. [] Neurologic: Alert and oriented X 3, normal motor function, normal sensory function, no focal deficits noted. [] Psychologic: Affect normal, judgement normal, mood normal. [] EKG: EKG: [] Radiology/Procedures: Radiology/Procedures: [] Impression: [facility] [address] [place], [place] [id number] IMAGING REPORT Signed PATIENT: JOSE ESPINOZA CACCOUNT: [id number] : 1980 LOCATION: ER AGE: 39 SEX: F EXAM STATUS: REG ER ORD. PHYSICIAN: JAVI ROMAN APRN REASON: right flank pain that wraps around to right abd PROCEDURE: CT ABDOMEN PELVIS WO CONTRAST EXAM: CT ABDOMEN/PELVIS WITHOUT CONTRAST. HISTORY: Right flank pain. TECHNIQUE: Computed tomography of the abdomen and pelvis was performed without intravenous contrast. One or more of the following individualized dose reduction techniques were utilized for this examination: 1. Automated exposure control. 2. Adjustment of the mA and/or kV according to patient size. 3. Use of iterative reconstruction technique. COMPARISON: 09/18/1949. FINDINGS: Lung windows through the visualized portions of the bases reveal mild atelectasis. Bone windows reveal no suspicious lesions. No renal or ureteral calculi are identified. There is no hydronephrosis. There are no suspicious renal lesions without contrast. The uterus and appendix are surgically absent. The right ovary appears to remain. A small umbilical hernia contains only fat. There are no pathologically enlarged lymph nodes. The liver, gallbladder, adrenal glands, pancreas and spleen are unremarkable without contrast. IMPRESSION: 1. No renal or ureteral calculi. No cause for acute pain is identified. Electronically signed by: Jay Morley MD (11/21/2019 12:57 PM) [id number] DICTATED and SIGNED BY: PHILLIP MORLEY MD DATE: 11/21/19 1257 Course & Med Decision Making: Course & Med Decision Making Pertinent Labs and Imaging studies reviewed. (See chart for details) See HPI. Right CVA tenderness. Right mid abdomen tenderness with palpation otherwise abdomen is soft and nontender. Alert and oriented x4. Ambulatory steady gait. Skin pink warm and dry. Speaks in full clear sentences. Blood work is unremarkable. CT scan shows no acute findings. Urinalysis shows no infection. This is likely musculoskeletal. Send her home with muscle relaxer and some pain medication. Patient will follow-up with her primary care physician. [] Dez Disclaimer: Dez Disclaimer: This electronic medical record was generated, in whole or in part, using a voice recognition dictation system. Departure Departure Impression: Primary Impression: Abdominal pain Qualified Codes: R10.11 - Right upper quadrant pain Additional Impression: Flank pain Disposition: HOME, SELF-CARE Condition: STABLE Referrals: DOMINGO GROVE MD (PCP) Patient Instructions: Muscle Strain Additional Instructions: Try using a heating pad. Take medication as prescribed and with food. Do not drink or drive on this medication. Follow-up with your primary care physician. Drink plenty of fluids. Scripts Hydrocodone/Apap 5-325 (NORCO 5-325 TABLET) 1 Each Tablet 1 TAB PO PRN Q6HRS PRN for PAIN, #10 TAB 0 Refills Prov: JAVI ROMAN CAR DRIVER 11/21/19 Orphenadrine Citrate (ORPHENADRINE CITRATE) 100 Mg Tablet.er 1 TAB PO BID, #14 TAB Prov: JAVI ROMAN APRN 11/21/19 Ibuprofen (IBUPROFEN) 600 Mg Tablet 600 MG PO PRN Q6HRS PRN for INFLAMMATION, #20 TAB Prov: JAVI ROMAN APRN 11/21/19 Justicifation of Admission Dx: Justifications for Admission: Justification of Admission Dx: N/A JAVI ROMAN APRN Nov 21, 2019 11:48
[2019-11-21 11:54] LABS: BILIRUBIN,URINE NEGATIVE (NEG); CLARITY,URINE CLEAR; COLOR,URINE YELLOW; NITRITE,URINE NEGATIVE (NEG); PH,URINE 6.5 (<5.0-8.0); PROTEIN,URINE NEGATIVE (NEG-TRACE); UROBILINOGEN,URINE 0.2 mg/dL (0.2 mg/dL)
[2019-11-21 12:00] LABS: BARBITURATES NEG (NEG); BENZODIAZEPINES NEG (NEG); CANNABINOIDS POS (NEG); COCAINE NEG (NEG); METHADONE NEG (NEG); OPIATES NEG (NEG); PHENCYCLIDINE NEG (NEG)
[2019-11-21 12:01] LABS: AMPHETAMINE/METHAMPHETAMINE NEG (NEG)
[2019-11-21 12:06] LABS: BACTERIA,URINE 0 /HPF (0-FEW); RBC,URINE 0 /HPF (0-2); SQUAMOUS EPITHELIAL CELL,UR MOD /LPF; WBC,URINE OCC /HPF (0-4)
[2019-11-21 12:20] LABS: PROTHROMBIN TIME PATIENT 13.1 SEC (11.7-14.0)
[2019-11-21 12:21] LABS: CALCIUM 8.2 mg/dL (8.5-10.1); CREATININE 1.2 mg/dL (0.6-1.0); GFR 60.5; POTASSIUM 3.6 mmol/L (3.5-5.1)
[2019-11-21 12:23] LABS: BASO # 0.1 x10^3/uL (0.0-0.2); BASO % 2 % (0-3); EOS # 0.1 x10^3/uL (0.0-0.7); EOS % 2 % (0-3); HEMATOCRIT 35.2 % (36.0-47.0); HEMOGLOBIN 11.9 g/dL (12.0-15.5); LYMPH # 3.1 x10^3/uL (1.0-4.8); LYMPH % 44 % (24-48); MEAN CORPUSCULAR HEMOGLOBIN 30 pg (25-35); MEAN CORPUSCULAR HGB CONC 34 g/dL (31-37); MEAN CORPUSCULAR VOLUME 87 fL (79-100); MONO # 0.4 x10^3/uL (0.0-1.1); MONO % 6 % (0-9); NEUT # 3.3 x10^3/uL (1.8-7.7); NEUT % 46 % (31-73); PLATELET COUNT 339 x10^3/uL (140-400); RED BLOOD COUNT 4.04 x10^6/uL (3.50-5.40); RED CELL DISTRIBUTION WIDTH 13.6 % (11.5-14.5); WHITE BLOOD COUNT 7.1 x10^3/uL (4.0-11.0)
[2019-11-21 12:27] LABS: ALBUMIN 3.5 g/dL (3.4-5.0); ALBUMIN/GLOBULIN RATIO 0.8 (1.0-1.7); TOTAL BILIRUBIN 0.3 mg/dL (0.2-1.0); TOTAL PROTEIN 7.8 g/dL (6.4-8.2)
[2019-11-21] MEDS ORDERED: ORPHENADRINE CITRATE 60 MG/2 ML VIAL. IM ONE (12:45)
[2019-11-21] MEDS ORDERED: KETOROLAC 30 MG/ML VIAL. IVP ONE (12:45)
--- NOTE | 2019-11-21 13:00 | RAD ---
EXAM: CT ABDOMEN/PELVIS WITHOUT CONTRAST. HISTORY: Right flank pain. TECHNIQUE: Computed tomography of the abdomen and pelvis was performed without intravenous contrast. One or more of the following individualized dose reduction techniques were utilized for this examination: 1. Automated exposure control. 2. Adjustment of the mA and/or kV according to patient size. 3. Use of iterative reconstruction technique. COMPARISON: 09/18/1949. FINDINGS: Lung windows through the visualized portions of the bases reveal mild atelectasis. Bone windows reveal no suspicious lesions. No renal or ureteral calculi are identified. There is no hydronephrosis. There are no suspicious renal lesions without contrast. The uterus and appendix are surgically absent. The right ovary appears to remain. A small umbilical hernia contains only fat. There are no pathologically enlarged lymph nodes. The liver, gallbladder, adrenal glands, pancreas and spleen are unremarkable without contrast. IMPRESSION: 1. No renal or ureteral calculi. No cause for acute pain is identified. Electronically signed by: Jay Morley MD (11/21/2019 12:57 PM) [id number]
[2019-11-21] MEDS ORDERED: ORPH100T PO (13:25)
[2019-11-21] MEDS ORDERED: IBUP-1007 PO (13:25)
[2019-11-21] MEDS ORDERED: HYDR-3164 PO (13:26)
== END 2019-11-21 13:40 | disposition home or self-care (01) ==
LOC: ER 11:31
DX: R10.11 Right upper quadrant pain (principal); F17.200 Nicotine dependence, unspecified, uncomplicated; Z90.89 Acquired absence of other organs; Z90.710 Acquired absence of both cervix and uterus; Z98.51 Tubal ligation status; Z88.1 Allergy status to other antibiotic agents; Z91.018 Allergy to other foods
CPT/HCPCS: 36415; 74176; 80053; 80307; 81001; 83690; 85025; 85610; 96361; 96372; 96374; 96375; 99284; J1885; J2360; J3010; J7030

== ENCOUNTER 2021-06-13 18:45 | Emergency (ER) | payer OTHER ==
[~2021-06-13] VITALS: Ht 157.5 cm; Wt 81.8 kg
[~2021-06-13 18:45] MED LIST changes: +DOXY-181 PO; -DOXY100C14 PO; -DOXY100C2 PO; +DOXY100C3 PO; +HYDR-3164 PO; +IBUP-1007 PO; +ORPH100T PO
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
[2021-06-13] MEDS ORDERED: fentaNYL PF VIAL 100 MCG/2 ML VIAL IVP ONE (20:30)
[2021-06-13 20:50] LABS: BASO # 0.3 x10^3/uL (0.0-0.2); BASO % 3 % (0-3); EOS # 0.2 x10^3/uL (0.0-0.7); EOS % 2 % (0-3); HEMATOCRIT 33.7 % (36.0-47.0); HEMOGLOBIN 11.3 g/dL (12.0-15.5); LYMPH # 3.4 x10^3/uL (1.0-4.8); LYMPH % 36 % (24-48); MEAN CORPUSCULAR HEMOGLOBIN 30 pg (25-35); MEAN CORPUSCULAR HGB CONC 34 g/dL (31-37); MEAN CORPUSCULAR VOLUME 88 fL (79-100); MONO # 0.5 x10^3/uL (0.0-1.1); MONO % 6 % (0-9); NEUT # 5.1 x10^3/uL (1.8-7.7); NEUT % 54 % (31-73); PLATELET COUNT 374 x10^3/uL (140-400); RED BLOOD COUNT 3.83 x10^6/uL (3.50-5.40); WHITE BLOOD COUNT 9.4 x10^3/uL (4.0-11.0)
[2021-06-13 21:18] LABS: ALBUMIN 3.8 g/dL (3.4-5.0); CALCIUM 9.2 mg/dL (8.5-10.1); CREATININE 1.1 mg/dL (0.6-1.0); GFR 66.2; POTASSIUM 4.1 mmol/L (3.5-5.1); TOTAL BILIRUBIN 0.3 mg/dL (0.2-1.0); TOTAL PROTEIN 7.7 g/dL (6.4-8.2)
[2021-06-13 21:36] LABS: BILIRUBIN,URINE NEGATIVE (NEG); CLARITY,URINE CLEAR; COLOR,URINE YELLOW; NITRITE,URINE NEGATIVE (NEG); PROTEIN,URINE TRACE mg/dL (NEG-TRACE); UROBILINOGEN,URINE 0.2 mg/dL (0.2 mg/dL)
[2021-06-13 21:38] LABS: BACTERIA,URINE FEW /HPF (0-FEW); RBC,URINE 0 /HPF (0-2); WBC,URINE OCC /HPF (0-4)
[2021-06-13] MEDS ORDERED: IOHEXOL 300 MG/ML 100ML VIAL. IV ONE (22:00)
[2021-06-13] MEDS ORDERED: CONTRAST GIVEN. MC PRN (22:00)
[2021-06-13] MEDS ORDERED: ORPHENADRINE CITRATE 60 MG/2 ML VIAL. IM ONE (23:00)
[2021-06-13] MEDS ORDERED: KETOROLAC 15 MG/ML VIAL. IVP ONE (23:00)
[2021-06-13 23:01] VITALS: BP 108/69
--- NOTE | 2021-06-13 23:20 | RAD ---
CT HEAD AND C-SPINE WO History: Pain Comparison: None. Technique: Noncontrast CT imaging was performed of the head and cervical spine. Coronal and sagittal reconstructions were performed. Exposure: One or more of the following individualized dose reduction techniques were utilized for thi s examination: 1. Automated exposure control 2. Adjustment of the mA and/or kV according to patient size 3. Use of iterative reconstruction technique. Findings: Head CT: No intracranial hemorrhage. No mass effect. No hydrocephalus. Extra-axial spaces are unrema rkable. Imaged orbits are unremarkable. Imaged paranasal sinuses and mastoid air cells are clear. No acute ca lvarial fracture. Cervical spine CT: Straightening of the cervical spine. Normal vertebral body height. No acute fracture. Soft tissues unremarkable. Impression: Head CT: 1. No acute intracranial abnormality. Cervical spine CT: 1. No acute fracture or subluxation of the cervical spine. Electronically signed by: Zay Zazueta DO (06/13/2021 11:18 PM) [facility]
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
[2021-06-13] MEDS ORDERED: IBUP-1060 PO (23:40)
[2021-06-13] MEDS ORDERED: CYCL10TA19 PO (23:40)
[2021-06-14] MEDS ORDERED: HYDROcodone/APAP 5/325MG 1 TAB TABLET PO ONE
== END 2021-06-14 00:07 | disposition home or self-care (01) ==
LOC: ER 18:45
DX: S29.012A Strain of muscle and tendon of back wall of thorax, initial encounter (principal); M54.50 Low back pain, unspecified; R51.9 Headache, unspecified; F17.200 Nicotine dependence, unspecified, uncomplicated; Z90.89 Acquired absence of other organs; Z90.710 Acquired absence of both cervix and uterus; Z98.51 Tubal ligation status; Z88.1 Allergy status to other antibiotic agents; Z91.018 Allergy to other foods; V49.59XA Passenger injured in collision with other motor vehicles in traffic accident, initial encounter; Y92.488 Other paved roadways as the place of occurrence of the external cause; Y93.89 Activity, other specified; Y99.8 Other external cause status
CPT/HCPCS: 36415; 70450; 71260; 72125; 74177; 80053; 81001; 83690; 84484; 85025; 96372; 96374; 96375; 99285; J1885; J2360; J3010; Q9967